=== PATIENT | male | born 1960 | race Hispanic/Latino ===

== ENCOUNTER 2017-10-17 13:01 | Emergency (ER) | payer BC ==
[~2017-10-17] VITALS: Ht 180.3 cm; Wt 108.9 kg
[2017-10-17] MEDS ORDERED: ACETAMINOPHEN/CODEINE 300MG - 30MG TAB PO ONE (13:15)
[2017-10-17] MEDS ORDERED: TETANUS/DIPHTHERIA TOX ADULT 0.5 ML SYR IM ONE (13:15)
--- NOTE | 2017-10-17 13:48 | Diagnostic Imaging Report ---
PROCEDURE:X-RAY LEFT ELBOW, COMPLETE COMPARISON:None. INDICATIONS:FALL FINDINGS: There are no fractures, dislocations, lytic or blastic lesions. The bones are well-mineralized. The soft-tissues are unremarkable. There is mild triceps enthesopathy. A well-circumscribed bony protuberance is seen at the medial epicondyle. CONCLUSION: No acute osseous abnormality. Possible small enchondroma or sequela of prior trauma at the medial epicondyle. Dictated by: BRANDIN WYNN M.D. on 10/17/2017 at 13:54 Electronically approved by: BRANDIN WYNN M.D. on 10/17/2017 at 13:54
--- NOTE | 2017-10-17 13:52 | Diagnostic Imaging Report ---
EXAMINATION: Head and cervical spine CT without contrast. HISTORY: Status post fall, hit the back of the head, head and neck pain COMPARISON: None. TECHNIQUE: Multidetector axial images were obtained without contrast from the foramen magnum to the vertex and through the cervical spine. The images were reconstructed using brain and bone algorithms. Thin section brain images were reformatted into coronal and sagittal planes. Dose modulation, iterative reconstruction, and/or weight based adjustment of the mA/kV was utilized to reduce the radiation dose to as low as reasonably achievable. HEAD CT FINDINGS: Skull: No lytic or blastic lesions. No fractures. Parenchyma: Normal. No mass, hemorrhage or CT evidence of acute vascular insult. Brain volume: Normal for age. Ventricles: No hydrocephalus or displacement. Arteries: No density suggestive of thrombus. Dural sinuses: No abnormal density. Extra-axial spaces: No abnormal density. Foramen magnum: No mass, Chiari malformation, or basilar invagination. Sella: No obvious mass. Paranasal/mastoid sinuses: Imaged portions unremarkable. CERVICAL SPINE CT FINDINGS: Alignment:Reversal of the cervical lordosis which may be related to muscle spasm or positional.. Minimal retrolisthesis at C3-C4. Soft tissues: Normal. Vertebrae: Normal height and density. No acute fracture, infection or neoplasm. Chronic endplate degenerative changes from C3 to T1. Air within the C7 vertebral body likely corresponds to migrated air from the intervertebral disc. Degenerative changes: Decreased disc height and disc osteophyte complex formation from C3-C4 to C7-T1. C2-C3: Uncovertebral and facet arthrosis. Mild right foraminal stenoses. C3-C4: Spondylosis, uncovertebral and facet arthrosis. Superimposed 3 mm AP diameter central disc protrusion. Severe spinal canal and bilateral foraminal stenoses C4-C5: Spondylosis, uncovertebral and facet arthrosis. Moderate spinal canal and moderately severe bilateral foraminal stenoses C5-C6: Spondylosis, uncovertebral and facet arthrosis. Severe spinal canal and bilateral foraminal stenosis. C6-7: Spondylosis, uncovertebral and facet arthrosis. Severe spinal canal and bilateral foraminal stenoses C7-T1: Spondylosis, uncovertebral and facet arthrosis. Severe spinal canal and bilateral foraminal stenosis. T1-T2: Facet arthrosis, moderate foraminal stenoses. IMPRESSION: Head CT: No intracranial abnormalities, particularly no posttraumatic hemorrhage. Cervical spine CT: 1. No acute fractures or dislocations. 2. Severe chronic degenerative spinal canal and bilateral foraminal stenoses from C3-C4 to C7-T1 as detailed above. Note: Acute post traumatic spinal cord, vascular or ligamentous injury cannot adequately be assessed with CT. Signed by: Dr. Elsa Bella M.D. on 10/17/2017 1:48 PM
[2017-10-17] MEDS ORDERED: NEOMYCIN/POLYMYX/BACITR OINT 0.9 GM PKT TOP STA (14:13)
== END 2017-10-17 15:02 | disposition home or self-care (01) ==
LOC: ER 13:01
DX: S01.01XA Laceration without foreign body of scalp, initial encounter (principal); S00.83XA Contusion of other part of head, initial encounter; S50.02XA Contusion of left elbow, initial encounter; W11.XXXA Fall on and from ladder, initial encounter; Y92.008 Other place in unspecified non-institutional (private) residence as the place of occurrence of the external cause; E11.9 Type 2 diabetes mellitus without complications
CPT/HCPCS: 70450; 72125; 90714; 99284

== ENCOUNTER 2018-06-05 19:36 | Emergency (ER) | payer SELFPAY ==
[~2018-06-05] VITALS: Ht 180.3 cm; Wt 108.9 kg
--- OUTSIDE RECORDS SUMMARY | 2018-06-05 19:39 | XMS REPORT ---
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 Allergies, Adverse Reactions, Alerts This patient has no known allergies or adverse reactions. Medications This patient has no known medications. Encounters Start Date/Time End Date/Time Encounter Type Admission Type Attending [facility] Care Facility Care Department Encounter ID 2018-09-24 00:00:00 2018-09-24 00:00:00 Outpatient [facility] [id number] 2018-02-20 10:05:41 2018-02-20 10:05:41 Outpatient [facility] [id number] 2018-01-16 09:18:32 2018-01-16 09:18:32 Outpatient [facility] [id number] 2018-01-16 08:49:42 2018-01-16 08:49:42 Outpatient [facility] [id number] 2018-01-02 16:57:47 2018-01-02 16:57:47 Outpatient [facility] [id number] 2017-12-31 00:00:00 2017-12-31 00:00:00 Outpatient [facility] [id number] 2017-12-31 00:00:00 2017-12-31 00:00:00 Outpatient [facility] [id number] 2017-12-31 00:00:00 2017-12-31 00:00:00 Outpatient [facility] [id number] 2017-12-03 00:00:00 2017-12-03 00:00:00 Outpatient [facility] [id number] 2017-11-30 00:00:00 2017-11-30 00:00:00 Outpatient [facility] [id number] 2017-11-30 00:00:00 2017-11-30 00:00:00 Outpatient [facility] [id number] 2017-11-08 00:00:00 2017-11-08 00:00:00 Outpatient [facility] [id number] 2017-10-31 09:29:36 2017-10-31 09:29:36 Outpatient [facility] [id number] 2017-10-18 10:07:14 2017-10-18 10:07:14 Outpatient [facility] [id number] 2017-10-09 15:46:07 2017-10-09 15:46:07 Outpatient [facility] [id number] 2017-10-02 14:12:46 2017-10-02 14:12:46 Outpatient [facility] [id number] 2017-10-02 10:07:17 2017-10-02 10:07:17 Outpatient [facility] [id number] 2017-09-21 09:10:13 2017-09-21 09:10:13 Outpatient [facility] [id number] 2017-09-21 08:39:33 2017-09-21 08:39:33 Outpatient [facility] [id number] 2017-09-21 07:50:43 2017-09-21 07:50:43 Outpatient [facility] [id number] 2017-09-21 00:00:00 2017-09-21 00:00:00 Outpatient [facility] [id number] 2016-11-28 14:56:01 2016-11-28 14:56:01 Outpatient [facility] [id number] Results Test Description Test Time Test Comments Text Results Atomic Results Result Comments ELBOW LEFT COMPLETE 2017-10-17 13:54:00 [place] [address] Patient Name: MARYJANE COLON MR #: [id number] : 1960 Age/Sex: 57/M Req #: [id number] Adm Physician: Ordered by: TIFFANIE FRYE REIMBURSEMENT COUNSELOR Report #: [id number] Location: ER Room/Bed: Procedure: [id number] DX/ELBOW LEFT COMPLETE Exam Date: 10/17/17 Exam Time: 1320 REPORT STATUS: Signed PROCEDURE: X-RAY LEFT ELBOW, COMPLETE COMPARISON: None. INDICATIONS: FALL FINDINGS: There are no fractures, dislocations, lytic or blastic lesions. The bones are well-mineralized. The soft-tissues are unremarkable. There is mild triceps enthesopathy. A well-circumscribed bony protuberance is seen at the medial epicondyle. CONCLUSION: No acute osseous abnormality. Possible small enchondroma or sequela of prior trauma at the medial epicondyle. Dictated by: BRANDIN WYNN M.D. on 10/17/2017 at 13:54 Electronically approved by: BRANDIN WYNN M.D. on 10/17/2017 at 13:54 Dictated By: BRANDIN WYNN MD [id number] Transcribed By: CUCA on 10/17/17 1354 COPY TO: TIFFANIE FRYE NP CT CERVICAL SPINE WO 2017-10-17 13:39:00 [place] [address] Patient Name: MARYJANE COLON MR #: [id number] : 1960 Age/Sex: 57/M Req #: [id number] Adm Physician: Ordered by: TIFFANIE FRYE REIMBURSEMENT COUNSELOR Report #: [id number] Location: ER Room/Bed: Procedure: [id number] CT/CT CERVICAL SPINE WO Exam Date: 10/17/17 Exam Time: 1315 REPORT STATUS: Signed EXAMINATION: Head and cervical spine CT without contrast. HISTORY: Status post fall, hit the back of the head, head and neck pain COMPARISON: None. TECHNIQUE: Multidetector axial images were obtained without contrast from the foramen magnum to the vertex and through the cervical spine. The images were reconstructed using brain and bone algorithms. Thin section brain images were reformatted into coronal and sagittal planes. Dose modulation, iterative reconstruction, and/or weight based adjustment of the mA/kV was utilized to reduce the radiation dose to as low as reasonably achievable. HEAD CT FINDINGS: Skull: No lytic or blastic lesions. No fractures. Parenchyma: Normal. No mass, hemorrhage or CT evidence of acute vascular insult. Brain volume: Normal for age. Ventricles: No hydrocephalus or displacement. Arteries: No density suggestive of thrombus. Dural sinuses: No abnormal density. Extra-axial spaces: No abnormal density. Foramen magnum: No mass, Chiari malformation, or basilar invagination. Sella: No obvious mass. Paranasal/mastoid sinuses: Imaged portions unremarkable. CERVICAL SPINE CT FINDINGS: Alignment:Reversal of the cervical lordosis which may be related to muscle spasm or positional.. Minimal retrolisthesis at C3-C4. Soft tissues: Normal. Vertebrae: Normal height and density. No acute fracture, infection or neoplasm. Chronic endplate degenerative changes from C3 to T1. Air within the C7 vertebral body likely corresponds to migrated air from the intervertebral disc. Degenerative changes: Decreased disc height and disc osteophyte complex formation from C3-C4 to C7-T1. C2-C3: Uncovertebral and facet arthrosis. Mild right foraminal stenoses. C3-C4: Spondylosis, uncovertebral and facet arthrosis. Superimposed 3 mm AP diameter central disc protrusion. Severe spinal canal and bilateral foraminal stenoses C4-C5: Spondylosis, uncovertebral and facet arthrosis. Moderate spinal canal and moderately severe bilateral foraminal stenoses C5-C6: Spondylosis, uncovertebral and facet arthrosis. Severe spinal canal and bilateral foraminal stenosis. C6-7: Spondylosis, uncovertebral and facet arthrosis. Severe spinal canal and bilateral foraminal stenoses C7-T1: Spondylosis, uncovertebral and facet arthrosis. Severe spinal canal and bilateral foraminal stenosis. T1- T2: Facet arthrosis, moderate foraminal stenoses. IMPRESSION: Head CT: No intracranial abnormalities, particularly no posttraumatic hemorrhage. Cervical spine CT: 1. No acute fractures or dislocations. 2. Severe chronic degenerative spinal canal and bilateral foraminal stenoses from C3-C4 to C7-T1 as detailed above. Note: Acute post traumatic spinal cord, vascular or ligamentous injury cannot adequately be assessed with CT. Signed by: Dr. Rashawn Bella M.D. on 10/17/2017 1:48 PM Dictated By: RASHAWN BELLA MD 47 Transcribed By: RANDA on 10/17/171347 COPY TO: TIFFANIE FRYE REIMBURSEMENT COUNSELOR CT BRAIN WO 2017-10-17 13:39:00 [place] [address] Patient Name: MARYJANE COLON MR #: [id number] : 1960 Age/Sex: 57/M Req #: [id number] Adm Physician: Ordered by: TIFFANIE FRYE REIMBURSEMENT COUNSELOR Report #: [id number] Location: ER Room/Bed: Procedure: [id number] CT/CT BRAIN WO Exam Date: 10/17/17 Exam Time: 1315 REPORT STATUS: Signed EXAMINATION: Head and cervical spine CT without contrast. HISTORY: Status post fall, hit the back of the head, head and neck pain COMPARISON: None. TECHNIQUE: Multidetector axial images were obtained without contrast from the foramen magnum to the vertex and through the cervical spine. The images were reconstructed using brain and bone algorithms. Thin section brain images were reformatted into coronal and sagittal planes. Dose modulation, iterative reconstruction, and/or weight based adjustment of the mA/kV was utilized to reduce the radiation dose to as low as reasonably achievable. HEAD CT FINDINGS: Skull: No lytic or blastic lesions. No fractures. Parenchyma: Normal. No mass, hemorrhage or CT evidence of acute vascular insult. Brain volume: Normal for age. Ventricles: No hydrocephalus or displacement. Arteries: No density suggestive of thrombus. Dural sinuses: No abnormal density. Extra-axial spaces: No abnormal density. Foramen magnum: No mass, Chiari malformation, or basilar invagination. Sella: No obvious mass. Paranasal/mastoid sinuses: Imaged portions unremarkable. CERVICAL SPINE CT FINDINGS: Alignment:Reversal of the cervical lordosis which may be related to muscle spasm or positional.. Minimal retrolisthesis at C3-C4. Soft tissues: Normal. Vertebrae: Normal height and density. No acute fracture, infection or neoplasm. Chronic endplate degenerative changes from C3 to T1. Air within the C7 vertebral body likely corresponds to migrated air from the intervertebral disc. Degenerative changes: Decreased disc height and disc osteophyte complex formation from C3-C4 to C7-T1. C2-C3: Uncovertebral and facet arthrosis. Mild right foraminal stenoses. C3-C4: Sp ondylosis, uncovertebral and facet arthrosis. Superimposed 3 mm AP diameter central disc protrusion. Severe spinal canal and bilateral foraminal stenoses C4-C5: Spondylosis, uncovertebral and facet arthrosis. Moderate spinal canal and moderately severe bilateral foraminal stenoses C5-C6: Spondylosis, uncovertebral and facet arthrosis. Severe spinal canal and bilateral foraminal stenosis. C6-7: Spondylosis, uncovertebral and facet arthrosis. Severe spinal canal and bilateral foraminal stenoses C7-T1: Spondylosis, uncovertebral and facet arthrosis. Severe spinal canal and bilateral foraminal stenosis. T1- T2: Facet arthrosis, moderate foraminal stenoses. IMPRESSION: Head CT: No intracranial abnormalities, particularly no posttraumatic hemorrhage. Cervical spine CT: 1. No acute fractures or dislocations. 2. Severe chronic degenerative spinal canal and bilateral foraminal stenoses from C3-C4 to C7-T1 as detailed above. Note: Acute post traumatic spinal cord, vascular or ligamentous injury cannot adequately be assessed with CT. Signed by: Dr. Rashawn Bella M.D. on 10/17/2017 1:48 PM Dictated By: RASHAWN BELLA MD 1348 Transcribed By: RANDA on 10/17/17 1348 COPY TO: TIFFANIE FRYE NP
--- OUTSIDE RECORDS SUMMARY | 2018-06-05 19:39 | XMS REPORT | Clinical Summary ---
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 7 diabetes mellitus with other specified complication, without long-term current use of insulin Active lancets 28 Test 2 times 100 Each 1 gaugeIndications: Type 2 weekly. 7 diabetes mellitus with other specified complication, without long-term current use of insulin Active blood glucose test Test 2 times 50 Each 3 stripsIndications: Type 2 weekly 7 diabetes mellitus with other specified complication, without long-term current use of insulin Active blood glucose meter Use as 1 Kit 0 (PRECISION XTRA directed.. 8 GLUCOMETER)Indications: Type 2 diabetes mellitus with microalbuminuria, without long-term current use of insulin Active blood glucose (PRECISION Use 2 times 50 Each 3 XTRA TEST STRIPS) test weekly (once 8 stripsIndications: Type 2 per day on diabetes mellitus with Mon,) to microalbuminuria, without test blood long-term current use of sugar. insulin Active lancets 28 Use 2 times 100 Each 1 gaugeIndications: Type 2 weekly as 8 diabetes mellitus with directed. microalbuminuria, without long-term current use of insulin Active clotrimazole (LOTRIMIN) 1 On toe nails 30 mL 0 % external twice a day. 8 solutionIndications: Onychomycosis Active BLOOD GLUCOSE METER As directed 1 Each 0 (CONTOUR NEXT EZ METER) to check 8 monitoring blood sugar 2 kitIndications: Type 2 times daily. diabetes mellitus with microalbuminuria, without long-term current use of insulin Active blood glucose (CONTOUR 2 times 100 Each 3 NEXT TEST STRIPS) test daily. 8 stripsIndications: Type 2 diabetes mellitus with microalbuminuria, without long-term current use of insulin Active clotrimazole (ATHLETE'S Apply to 30 g 0 FOOT, CLOTRIMAZOLE,) 1 % affected area 8 topical creamIndications: 2 times Tinea pedis of both feet daily. Active glyBURIDE-metFORMIN Take 1 tablet 180 tablet 1 (GLUCOVANCE) 2.5-500 mg by mouth 2 8 per tabletIndications: times daily Type 2 diabetes mellitus (with meals). with microalbuminuria, without long-term current use of insulin Active lisinopril (PRINIVIL) 20 Take 1 tablet 90 tablet 1 mg tabletIndications: by mouth 8 Microalbuminuria daily. 10/02/2017 Discontinued metFORMIN (GLUCOPHAGE) Take 1,000 mg 0 1,000 mg tablet by mouth daily (with breakfast) . 10/02/2017 Discontinued metFORMIN (GLUCOPHAGE) Take 1 tablet 90 tablet 1 1,000 mg by mouth 7 tabletIndications: Type 2 daily (with diabetes mellitus with breakfast). other specified complication, without long-term current use of insulin 10/02/2017 Discontinued ketoconazole (NIZORAL) 2 Apply to 30 g 3 % topical affected area 7 creamIndications: Tinea 2 times pedis of both feet daily. 10/02/2017 Discontinued clotrimazole (LOTRIMIN) 1 Apply 1-2 30 mL 3 % external drops to 7 solutionIndications: affected Onychomycosis nails 2 times a day. Use a nail file to keep nails thin. Treatment may take up to 1 year. 09/21/2017 tropicamide (MYDRIACYL) Instill 1 15 mL 0 0.5 % ophthalmic Drop in each 8 solutionIndications: eye once as Preventative health care, needed for up Type 2 diabetes mellitus to 1 dose with hemoglobin A1c goal (for poor to be determined retina scan image). 10/02/2017 Discontinued lisinopril (PRINIVIL) 20 Take 1 tablet 90 tablet 1 mg tabletIndications: by mouth 8 Microalbuminuria daily. 10/02/2017 Discontinued glyBURIDE-metFORMIN Take 1 tablet 360 tablet 1 (GLUCOVANCE) 2.5-500 mg by mouth 2 8 per tabletIndications: times daily Type 2 diabetes mellitus (with meals). with microalbuminuria, without long-term current use of insulin 10/02/2017 Discontinued lisinopril (PRINIVIL) 20 Take 1 tablet 90 tablet 1 mg tabletIndications: by mouth 8 Microalbuminuria daily. 10/02/2017 Discontinued glyBURIDE-metFORMIN Take 1 tablet 360 tablet 1 (GLUCOVANCE) 2.5-500 mg by mouth 2 8 per tabletIndications: times daily Type 2 diabetes mellitus (with meals). with microalbuminuria, without long-term current use of insulin 01/16/2018 Discontinued glyBURIDE-metFORMIN Take 2 360 tablet 1 (GLUCOVANCE) 2.5-500 mg tablets by 8 per tabletIndications: mouth 2 times Type 2 diabetes mellitus daily (with with microalbuminuria, meals). without long-term current use of insulin 01/16/2018 Discontinued lisinopril (PRINIVIL) 20 Take 1 tablet 90 tablet 1 mg tabletIndications: by mouth 8 Microalbuminuria daily. 01/02/2018 Discontinued sulfamethoxazole-trimetho Take 1 tablet 20 tablet 0 prim (BACTRIM DS) 800-160 by mouth 2 8 mg per tabletIndications: times daily Cellulitis of right foot for 10 days. 01/02/2018 Discontinued mupirocin (BACTROBAN) 2 % Apply to 22 g 0 ointmentIndications: affected area 8 Cellulitis of right foot 3 times daily for 7 days. 01/12/2018 Miconazole Nitrate Apply to 70 g 0 (LOTRIMIN AF) 2 % topical affected area 8 powderIndications: Tinea as needed for pedis of both feet up to 10 days for Itching. 01/02/2018 Discontinued clotrimazole (ATHLETE'S Apply to 30 g 0 FOOT, CLOTRIMAZOLE,) 1 % affected area 8 topical creamIndications: 2 times Tinea pedis of both feet daily. 01/12/2018 sulfamethoxazole-trimetho Take 1 tablet 20 tablet 0 prim (BACTRIM DS) 800-160 by mouth 2 8 mg per tabletIndications: times daily Cellulitis of right foot for 10 days. 01/09/2018 mupirocin (BACTROBAN) 2 % Apply to 22 g 0 ointmentIndications: affected area 8 Cellulitis of right foot 3 times daily for 7 days. Status Hospital, Clinic, or Ordered Dose Route Frequency Start End Date Other Facility Date Administered Medication Ended bacitracin 500 units/gram 1 g TP ONCE 01/03/20 topical ointment 1 18 8 gIndications: Cellulitis of right foot Active Problems Problem Noted Date Essential hypertension 10/31/2017 Medication refused - insulin 10/02/2017 Type 2 diabetes mellitus with microalbuminuria, without long-term current 10/02/2017 use of insulin Microalbuminuria 10/02/2017 Dietary noncompliance- pudding, coke Zero. 10/02/2017 Encounters Care Team Description Date Type Specialty Christine Douglass RPH Inadequately controlled diabetes mellitus (Primary Dx) 02/20/2018 Office Visit Clinical Pharmacy 02/20/2018 Travel Christine Douglass RPH Type 2 diabetes mellitus with microalbuminuria, without long-term current use of insulin; Microalbuminuria 01/16/2018 Office Visit Clinical Pharmacy Fadia Nur NP Cellulitis of right foot (Primary Dx); Tinea pedis of both feet; Type 2 diabetes mellitus without complication, without long-term current use of insulin 01/02/2018 Same Day Family Practice Santos Medina RN Disease Management F/U 01/02/2018 Telephone Patient Education Kim Moore Appointment Related Questions 12/03/2017 Telephone Nutrition Kim Moore Appointment Related Questions 11/30/2017 Telephone Nutrition Orquidea Stafford Diabetes; Pre-clinic Chart Review 11/08/2017 Telephone Social Work Sky Denise MD Barning, Kenneth, MD Type 2 diabetes mellitus with microalbuminuria, without long- term current use of insulin (Primary Dx); Essential hypertension 10/31/2017 Office Visit Family Practice Santos Medina RN 10/31/2017 Patient Patient Education Education Sky Denise MD Rodriguez, Maricela 10/18/2017 Nurse Only Sky Denise MD Kim Moore Type 2 diabetes mellitus with other specified complication, without long-term current use of insulin; Type 2 diabetes mellitus with microalbuminuria, without long-term current use of insulin 10/02/2017 Nutrition Nutrition Sky Denise MD Type 2 diabetes mellitus with microalbuminuria, without long-term current use of insulin (Primary Dx); Microalbuminuria; Dietary noncompliance- pudding, coke Zero. ; Preventative health care; Medication refused - insulin ; Onychomycosis 10/02/2017 Office Visit Family Practice Sky Denise MD Type 2 diabetes mellitus with microalbuminuria, without long-term current use of insulin; Preventative health care 10/02/2017 Orders Only Family Practice Santos Medina RN 10/02/2017 Patient Patient Education Education David Oliver MD Preventative health care (Primary Dx); Type 2 diabetes mellitus with hemoglobin A1c goal to be determined; Essential hypertension: diagnosis, recommend DASH diet, weight loss; Bradycardia: asymptomatic; Bilateral hand numbness; Alcohol abuse; Onychomycosis; Asymptomatic varicose veins of bilateral lower extremities 09/21/2017 Office Visit Family Practice David Oliver MD Onychomycosis; Abnormal finding on imaging 09/21/2017 Orders Only Family Practice David Oliver MD Abnormal finding on imaging (Primary Dx) 09/21/2017 Orders Only Family Practice after 06/04/2017 Immunizations Name Dates Previously Given Next Due Influenza, Seasonal, 01/02/2018 (Deferred: Patient Refused) Injectable PPV 23 (Pneumococcal 10/02/2017 Polysaccharide 23 Valent) Tdap (Tetanus Toxoid, 10/02/2017 Reduced Diphtheria Toxoid And Acellular Pertussis, Absorbed) Family History Medical History Relation Name Comments Diabetes Father Arthritis Mother Relation Name Status Comments Father Alive Maternal Grandfather Maternal Grandmother Mother Alive Paternal Grandfather Paternal Grandmother Sister Sister Alive Sister Alive Sister Alive Social History Date Tobacco Use Types Packs/Day Years Used Never Smoker Smokeless Tobacco: Never Used Tobacco Cessation: Counseling Given: No Alcohol Use Drinks/Week oz/Week Comments Yes 2 Cans of 1.2 beer Sex Assigned at Date Recorded Not on file Industry Job Start Date Occupation Not on file Not on file Not on file Travel End Travel History Travel Start No recent travel history available. Last Filed Vital Signs Time Taken Vital Sign Reading 02/20/2018 10:06 AM [employer] Blood Pressure 157/79 02/20/2018 10:06 AM [employer] Pulse 60 02/20/2018 10:06 AM [employer] Temperature 36.7 C (98 F) 02/20/2018 10:06 AM [employer] Respiratory Rate 18 01/02/2018 4:59 PM [employer] Oxygen Saturation 98% - Inhaled Oxygen - Concentration 02/20/2018 10:06 AM [employer] Weight 128.8 kg (284 lb) 02/20/2018 10:06 AM [employer] Height 180.3 cm (5' 11") 02/20/2018 10:06 AM [employer] Body Mass Index 39.61 Plan of Treatment Health Maintenance Due Date Last Done Comments DM Retinal Exam (Yearly) 09/21/2018 09/21/2017, 09/21/2017, 10/03/2016 Colorectal Cancer Scrn 10/09/2018 10/09/2017 Annual (FIT/FOBT) Age 50 to 75 IMM Influenza Seasonal 11/19/2018Nov to April (>/=19 yrs) DM Foot Exam (Yearly) 01/02/2019 01/02/2018, 09/21/2017, 09/21/2017, Additional history exists DM HGBA1C (Yearly) 01/16/2019 01/16/2018, 09/21/2017, 09/21/2017, Additional history exists Goals Goal Patient Associated Recent Progress Patient-Stat Author Goal Type Problems ed? Use plate model Diet No Kim Moore Reduce sugar intake Diet No Kim Moore Note: Replace juices with water or unsweetened beverages Eat Healthy-stop sweet drinks Lifestyle No Santos Medina RN LOWER BLOOD GLUCOSE Lifestyle No Sky Denise MD Exercise Regularly Self No Orquidea Stafford management G Procedures Comments Procedure Name Priority Date/Time Associated Diagnosis COMPREHENSIVE METABOLIC Routine 01/16/2018 Type 2 diabetes mellitus PANEL(DBIL NOT INCLUDED) 9:12 AM [employer] with microalbuminuria, without long-term current use of insulin HEMOGLOBIN A1C Routine 01/16/2018 Type 2 diabetes mellitus 9:12 AM [employer] with microalbuminuria, without long-term current use of insulin DIABETIC FOOT EXAM Routine 01/02/2018 Type 2 diabetes mellitus 5:13 PM [employer] without complication, without long-term current use of insulin OCCULT BLOOD ICT Routine 10/09/2017 [facility] 3:44 PM CDT Type 2 diabetes mellitus with hemoglobin A1c goal to be determined OPHTHALMOLOGY RETINAL Routine 09/21/2017 [facility] SCAN 9:04 AM CDT Type 2 diabetes mellitus with hemoglobin A1c goal to be determined MICROALBUM, URINE Routine 09/21/2017 [facility] health care 8:38 AM CDT Type 2 diabetes mellitus with hemoglobin A1c goal to be determined LIVER PROFILE Routine 09/21/2017 [facility] health care 8:37 AM CDT Type 2 diabetes mellitus with hemoglobin A1c goal to be determined Alcohol abuse BASIC METABOLIC PANEL Routine 09/21/2017 [facility] care 8:37 AM CDT Type 2 diabetes mellitus with hemoglobin A1c goal to be determined Alcohol abuse LIPID PROFILE Routine 09/21/2017 [facility] health care 8:37 AM CDT Type 2 diabetes mellitus with hemoglobin A1c goal to be determined CBC/DIFF Routine 09/21/2017 Preventative [facility] care 8:37 AM CDT Type 2 diabetes mellitus with hemoglobin A1c goal to be determined HEMOGLOBIN A1C Routine 09/21/2017 [facility] health care 8:37 AM CDT Type 2 diabetes mellitus with hemoglobin A1c goal to be determined NEEDLE EMG, 2 EXTREMITIES Routine 09/21/2017 Bilateral hand numbness 8:32 AM CDT Alcohol abuse DIABETIC FOOT EXAM Routine 09/21/2017 Type 2 diabetes mellitus 8:18 AM CDT with hemoglobin A1c goal to be determined after 06/04/2017 Results * HEMOGLOBIN A1C (01/16/2018 9:12 AM [employer]) Only the most recent of 2 results within the time period is included. Hemoglobin A1c 7.2 (H) 4.3 - 6.1 % [facility] IMMUNOLOGY Est Average 159.9 mg/dL BT DIAGNOSTIC Gluc IMMUNOLOGY Specimen Blood Performing Organization Address City/State/Zipcode Phone Number [facility] * COMPREHENSIVE METABOLIC PANEL(DBIL NOT INCLUDED) (01/16/2018 9:12 AM [employer]) Albumin 3.8 (L) 4.2 - 5.5 g/dL [facility] 1 Calcium 9.2 8.6 - 10.3 mg/dL [facility] 1 CO2 27 21 - 31 mmol/L [facility] 1 Chloride 103 98 - 107 mmol/L [facility] 1 Creatinine 0.70 0.7 - 1.3 mg/dL [facility] 1 Glucose 87 70 - 110 mg/dL [facility] 1 Alk Phos 124 (H) 34 - 104 U/L [facility] 1 Potassium 4.5 3.5 - 5.1 mmol/L [facility] 1 Sodium 138 136 - 145 mmol/L [facility] 1 ALT 73 (H) 7 - 52 U/L [facility] 1 AST 47 (H) 13 - 39 U/L [facility] 1 Urea Nitrogen 10 7 - 25 mg/dL [facility] 1 T Bilirubin 0.4 0.2 - 1.2 mg/dL [facility] 1 T Protein 7.4 6.0 - 8.3 g/dL [facility] 1 GFR, Estimated >60 mL/min/1.73 m2 [facility] 1 GFR, Estim, >60 mL/min/1.73 m2 [facility] Afr-Am 1 Anion Gap 8 [facility] 1 Specimen Blood Performing Organization Address [facility] Phone Number [facility] * DIABETIC FOOT EXAM (01/02/2018 5:13 PM [employer]) Only the most recent of 2 results within the time period is included. Narrative Performed At Fadia Nur NP 01/02/20186:06 PM Diabetic Foot Exam was performed at 01/02/2018 5:14 PM.Right foot sensation is reduced, right foot pulses are normal, right foot appearance is abnormal (rash to sole of foot / right heel foot wound).Left foot sensation is reduced,left foot pulses are normal,left foot appearance is abnormal (rash to sole of foot). * OCCULT BLOOD ICT (10/09/2017 3:44 PM CDT) Pathologist [facility] Occult Blood Negative NEG [facility] ICT LAB 2 Specimen Stool Performing Organization Address [facility] Phone Number [facility] 2 * OPHTHALMOLOGY RETINAL SCAN (09/21/2017 9:04 AM CDT) RETINAL NORMAL IRIS SCAN-FINAL RESULT Right Diabetic None IRIS Retinopathy Right Macular None IRIS Edema Right Other None IRIS Suspected Conditions Right Image Gradeable Image IRIS Quality Left Diabetic None IRIS Retinopathy Left Macular None IRIS Edema Left Other Suspected Glaucoma, Suspected IRIS Suspected Cataract Conditions Left Image Gradeable Image IRIS Quality Narrative Performed At Retinal Study Result for CHAPIN COLON OCTAVIANO, a 57 y/o, M (: 1960, ) presented to [facility] on 09-21-2017 for a retinal imaging study of the left and right eyes. Based on the findings of the study, the following is recommended for CHAPIN COLON Other Suspected Condition Found: Refer to [facility], next available appointment.For Follow-up at [facility]: The patient can be scheduled into any [facility] that has an open booking by calling the appointment center. Interpreting Provider's Comments:No comments provided Right Eye Findings: Normal Result.Negative for Diabetic Retinopathy. Left Eye Findings: Negative for Diabetic Retinopathy. Other: Suspected Glaucoma Other: Suspected Cataract This result was electronically signed by Dutch Jackman MD, , Taxonomy: [id number] on 09-21-2017 02:04:48 UTC time. NOTE:Any pathology noted on this diabetic retinal evaluation should be confirmed by an appropriate ophthalmic examination. Performing Organization Address [facility] Phone Number IRIS * MICROALBUM, URINE (09/21/2017 8:38 AM CDT) Microalbum, 9.4 0.0 - 29.0 mg/dL BT [facility] Random 1 Creatinine, Ur 139.6 20 - 370 mg/dL [facility] 1 Urine 67.3 (H) 0 - 29 mg/g UCR [facility] Microalbumin Comment: 1 To minimize intra-individual variation, analysis of three random urine samples collected over the course of a week is recommended. Performing Organization Address [facility] Phone Number ROCÍO [facility] 1 * LIVER PROFILE (09/21/2017 8:37 AM CDT) T Protein 7.2 6.0 - 8.3 g/dL BT [facility] 1 Albumin 4.5 4.2 - 5.5 g/dL [facility] 1 T Bilirubin 0.6 0.2 - 1.2 mg/dL BT [facility] 1 Alk Phos 99 34 - 104 U/L BT [facility] 1 AST 20 13 - 39 U/L [facility] 1 ALT 32 7 - 52 U/L [facility] 1 D Bilirubin 0.1 0.0 - 0.2 mg/dL [facility] 1 Specimen Blood Performing Organization Address [facility] Phone Number [facility] 1 * LIPID PROFILE (09/21/2017 8:37 AM CDT) Cholesterol 250 mg/dL [facility] Comment: 1 REFERENCE RANGE: Desirable: <200 mg/dL Borderline: 200-240 mg/dL High Risk: >240 mg/dL Triglyceride 89 <150 mg/dL [facility] Comment: 1 REFERENCE RANGE: Normal: <150 mg/dL Borderline High: 150-199 mg/dL High: 200-499 mg/dL Very High: >xv=892 mg/dL HDL 65 mg/dL BT [facility] Comment: 1 Increased CHD risk: <40 mg/dL Decreased CHD risk: >60 mg/dL LDL 167 mg/dL [facility] Comment: 1 REFERENCE RANGE: Optimal: <100 mg/dL Near Optimal: 100-129 mg/dL Borderline High: 130-159 mg/dL High: 160-189 mg/dL Very High: >[place]=095 mg/dL Specimen Blood Performing Organization Address [facility] Phone Number [facility] 1 * CBC/DIFF (09/21/2017 8:37 AM CDT) WBC 5.7 4.5 - 12.0 K/uL BT [facility] 2 RBC 4.82 4.60 - 6.20 M/uL [facility] 2 Hemoglobin 14.1 14.0 - 18.0 g/dL BT [facility] 2 Hematocrit 43.2 40.0 - 54.0 % BT [facility] 2 MCV 90 82 - 92 fL BT [facility] 2 MCH 29.3 27.0 - 31.0 pg BT [facility] 2 MCHC 32.6 32.0 - 36.0 g/dL [facility] 2 RDW 42.3 35.1 - 43.9 fL BT [facility] 2 Platelet 248 150 - 400 K/uL [facility] 2 Mean Platelet 11.7 9.4 - 12.4 fL [facility] Volume 2 Percent NRBC 0.0 BT [facility] 2 Absolute NRBC 0.00 BT [facility] 2 Neutrophil 58.3 34.0 - 67.9 % BT [facility] 2 Lymphocyte 31.5 21.8 - 50.0 % BT [facility] 2 Monocyte 6.3 5.3 - 12.0 % BT [facility] 2 Eosinophil 2.5 0.8 - 5.0 % BT [facility] 2 Basophil 1.2 0.2 - 1.2 % BT [facility] 2 Pct Immat Gran 0.2 0.0 - 0.5 BT [facility] 2 Neutrophil, Abs 3.33 1.78 - 5.36 K/uL BT [facility] 2 Lymphocyte, Abs 1.80 1.32 - 3.57 K/uL BT [facility] 2 Monocyte, Abs 0.36 0.30 - 0.82 K/uL BT [facility] 2 Eosinophil, Abs 0.14 0.04 - 0.54 K/uL BT [facility] 2 Basophil, Abs 0.07 0.01 - 0.08 K/uL BT [facility] 2 Absol Immat 0.01 0.00 - 0.03 K/uL BT [facility] Gran 2 Specimen Blood Performing Organization Address City/State/Zipcode Phone Number [facility] 2 * BASIC METABOLIC PANEL (09/21/2017 8:37 AM CDT) CO2 31 21 - 31 mmol/L BT [facility] 1 Chloride 98 98 - 107 mmol/L BT [facility] 1 Potassium 4.8 3.5 - 5.1 mmol/L [facility] 1 Sodium 138 136 - 145 mmol/L BT [facility] 1 Glucose 352 (H) 70 - 110 mg/dL BT [facility] 1 Urea Nitrogen 10 7 - 25 mg/dL BT [facility] 1 Creatinine 0.70 0.7 - 1.3 mg/dL [facility] 1 Anion Gap 9 BT [facility] 1 Calcium 9.9 8.6 - 10.3 mg/dL [facility] 1 GFR, Estimated >60 mL/min/1.73 m2 [facility] 1 GFR, Estim, >60 mL/min/1.73 m2 [facility] Afr-Am 1 Specimen Blood Performing Organization Address City/State/Zipcode Phone Number [facility] 1 after 06/04/2017 Insurance Type Payer Benefit Subscriber ID Effective Phone Address Plan / Dates Group [employer] SELF-[employer]Y [employer]AN xxxxxxx 2017- [phone] [id number] [place] [address] (Self)
== END 2018-06-05 19:47 | disposition left against medical advice (07) ==
LOC: ER 19:36
DX: R69 Illness, unspecified (principal)